=== PATIENT | female | born 1965 | race Caucasian/White ===

== ENCOUNTER 2016-05-31 08:17 | Day surgery (SDC) | payer OTHER ==
[~2016-05-31] VITALS: Ht 154.9 cm; Wt 90.0 kg
[~2016-05-31 08:17] MED LIST: HSC.125T PO; OMEP40CA36 PO; POLY17PO6 PO; Sodium Chloride LOK Flush 10 mL Syringe IV PRN; fentaNYL-PF 50 mCg/mL 2 mL Inj IVPUSH PRN
[2016-05-31 08:59] VITALS: BP 120/76; PULSE 84; RESP 16; O2SAT 98
[2016-05-31] MEDS ORDERED: FLUT9.9S NS (09:08)
[2016-05-31] MEDS ORDERED: 0.9% Sodium Chloride 1,000 ML IV ONE (09:10)
[2016-05-31] MEDS ORDERED: 0.9% Sodium Chloride 1,000 ML ONE (09:13)
[2016-05-31 09:48] VITALS: BP 112/68; PULSE 64; RESP 14; O2SAT 97
--- NOTE | 2016-05-31 09:49 | PCM.ENDCOL ---
Colonoscopy Date of Service: May 31, 2016 Physician Pantera Gates MD Indication for Procedure Blood in stools and personal history of colon polyps Pre Procedure Diagnosis: Hemorrhoids anal fissure polyp diverticuli Procedure Colonoscopy Prep adequate Withdrawal 11 minutes PROCEDURE IN DETAIL: After unremarkable rectal examination on this video colonoscope was inserted into patient's anal canal. Scope was advanced the cecum. Landmarks are identified including the ileocecal valve and appendiceal orifice. The scope was withdrawn Systematically. The mucosa of the cecum, ascending, transverse, descending, sigmoid, rectal mucosa lined with whitish, pink, smooth, glistening, normal-appearing mucosa, normal fine branching, underlying vascularity, normal haustra. The patient tolerated procedure and was transported to observation area. In the transverse colon, there was a 1 mm polyp which was resected completely using cold forceps. In the sigmoid colon there were a few small diverticula. In the rectum retroflexion was done which showed hemorrhoids and anal canal was inspected a carefully and the way out and mild hemorrhoids noted. Also there was a small 3-5 mm fissure with some scarring. She was tender at that site. Impression Personal history: Polyp Diverticuli Hemorrhoids Anal fissure healing Polyp 1 status post complete removal Blood in the stool better since exiting her in clinic. Recommendation Repeat colonoscopy 5 years Diverticular diet Follow up in 2 months if she has persistent bleeding or discomfort in the anal canal. Presedation Assessment Risks and Benefits Informed consent was obtained from the patient after all risks and benefits including but not limited to drug reaction, infection, pain, bleeding, perforation, as well as alternatives were discussed. Patient monitoring Continuous pulse oximetry, cardiac monitoring, blood pressure monitoring, IV access, and oxygen at 2L per nasal cannula. Periprocedural Fentanyl: Fentanyl 75mcg Incrementally Midazolam: Midazolam 3mg Incrementally Complications There were no periprocedural complications identified. Post Procedure Plan Post Procedure Recommendations 1. Restrict activities today. 2. Resume normal activities in the morning. 3. Resume medications. 4. Patient informed of normal post procedure side effects as bloating, drowsiness, blood streaking in the stool. 5. average risk CRCS. If colon polyps come back as: -Hyperplastic- can repeat colonoscopy in 10 years -Tubular adenoma- repeat colonoscopy in 5 years -Tubulovillous/villous adenoma- repeat colonoscopy in 3 years -If any dysplasia- return to clinic as soon as possible 6. Please don't hesitate to call me with any questions. Pantera Gates MD May 31, 2016 09:49
[2016-05-31 09:58] VITALS: BP 112/68; PULSE 72; RESP 14; O2SAT 98
[2016-05-31 10:00] VITALS: BP 115/65; PULSE 75; RESP 16; O2SAT 95
--- NOTE | 2016-06-04 10:08 | PATH ---
SURGICAL PATHOLOGY Attending Physician:Pantera Gates M.D. CASE STATUS: Signed Out PATIENT NAME: MAGDA NIETO PID: [id number] : 1965 DATE COLLECTED:05/31/2016 20:45 SPECIMEN: Colon, Biopsy CLINICAL HISTORY: 1). TRANSVERSE COLON POLYP X1 FINAL DIAGNOSIS: 1.TRANSVERSE COLON POLYP: TUBULAR ADENOMA. ICD10 CODE D12.3 GROSS DESCRIPTION: The specimen is received in one formalin filled container labeled with the patient's name, sublabeled "transverse colon polyp x1" and consists of a 0.2 x 0.2 x 0.2 CM portion of tissue which is entirely submitted in one cassette. 05/31/2016 DAC MICRO DESCRIPTION: See diagnosis. ICD-9 CODES: CPT CODES: 1: 46531 Electronically Signed Out Donal Mar MD [facility] Pathology [facility] [address], [place] [address] Technical component performed at [facility], [address] [place] [address] [address], [place], [address]
== END 2016-05-31 23:59 | disposition home or self-care (01) ==
LOC: END 08:17
PROVIDERS: ATTEND Internal Medicine
DX: D12.3 Benign neoplasm of transverse colon (principal); K60.2 Anal fissure, unspecified; K57.30 Diverticulosis of large intestine without perforation or abscess without bleeding; K64.9 Unspecified hemorrhoids; K92.1 Melena
CPT/HCPCS: 45380; G0500; J2250; J3010; J7030